=== PATIENT | female | born 1990 | race Caucasian/White ===

== ENCOUNTER 2021-09-29 12:08 | Emergency (ER) | payer MEDICAID ==
[~2021-09-29] VITALS: Ht 152.4 cm; Wt 53.5 kg
[2021-09-29 12:10] VITALS: BP 118/77
--- NOTE | 2021-09-29 12:35 | NUR ---
PATIENT PRESENTS TO ED WITH C/O OF RIGHT SIDED HEAD PAIN WITH NUMB LIPS THAT RADIATES TO HER CHEST. DENIES N/V/D; SKIN IS PINK/WARM/DRY; AAOX4 WITH EVEN AND STEADY GAIT; PT DENIES ANY FEVER, CP, SOB, OR COUGH AT THIS TIME; VSS; PATIENT POSITIONED FOR COMFORT; HOB ELEVATED; BEDRAILS UP X2; BED DOWN. ER MD MADE AWARE OF PT STATUS. MED HX: DENIES ALLERGIES: NKA
[2021-09-29] MEDS: KETOROLAC 30 MG/ML VIAL IM ONE (13:28)
[2021-09-29] MEDS: PROCHLORPERAZINE 5 MG TAB PO ONE (13:28)
[2021-09-29] MEDS ORDERED: PROC-66 PO (14:52)
[2021-09-29] MEDS ORDERED: IBUP-2213 PO (14:52)
[2021-09-29] MEDS ORDERED: DIPH25TA53 PO (14:52)
--- NOTE | 2021-09-29 15:26 | NUR ---
Patient discharged with v/s stable. Written and verbal after care instructions given and explained. Patient alert, oriented and verbalized understanding of instructions. Ambulatory with steady gait. All questions addressed prior to discharge. ID band removed. Patient advised to follow up with PMD. Rx of BENADRYL,COMPAZINE,IBU given. Patient educated on indication of medication including possible reaction and side effects. Opportunity to ask questions provided and answered.
[2021-09-29 15:32] VITALS: BP 111/72
== END 2021-09-29 15:32 | disposition home or self-care (01) ==
LOC: MED 12:08
DX: R51.9 Headache, unspecified (principal); R68.84 Jaw pain; H92.01 Otalgia, right ear; Z79.899 Other long term (current) drug therapy
CPT/HCPCS: 81025; 96372; 99283; J1885; Q0163; Q0164